=== PATIENT | male | born 1965 | race Caucasian/White ===

== ENCOUNTER 2019-05-08 08:25 | Day surgery (SDC) | payer MEDICAID ==
[~2019-05-08] VITALS: Ht 180.3 cm; Wt 109.3 kg
[~2019-05-08 08:25] MED LIST: LACTATED RINGERS 1,000 ML IV SCH
[2019-05-08] MEDS ORDERED: TROPICAMIDE 1% OPHTH DROPS 15ML LEFTEYE NR (09:05)
[2019-05-08] MEDS ORDERED: PHENYLEPHRINE HCL 10% OPHTH DROPS 5ML LEFTEYE NR (09:05)
[2019-05-08] MEDS ORDERED: FLUT1AER IH (09:23)
[2019-05-08] MEDS ORDERED: FENO130C8 PO (09:23)
[2019-05-08] MEDS ORDERED: METO-396 PO (09:23)
[2019-05-08] MEDS ORDERED: LEVO137T2 PO (09:23)
[2019-05-08] MEDS ORDERED: ATOR10TA69 PO (09:23)
[2019-05-08] MEDS ORDERED: TIOT18CA3 INH (09:23)
[2019-05-08] MEDS ORDERED: CYCLOPENTOLATE HCL 1% OPHTH DROPS 2ML LEFTEYE NR (09:30)
[2019-05-08] MEDS ORDERED: BALANCED SALT IRRIG SOLN COMB1 500ML OP SCH (10:00)
[2019-05-08] MEDS ORDERED: FENTANYL CITRATE/PF 50MCG/ML 2ML VIAL ONE (10:07)
[2019-05-08] MEDS ORDERED: MIDAZOLAM HCL 2 MG/2 ML VIAL ONE (10:08)
[2019-05-08] MEDS ORDERED: DIPHENHYDRAMINE 50MG/ML VIAL ONE (10:08)
[2019-05-08] MEDS ORDERED: PROPOFOL 200MG/20ML VIAL IV ONE (10:08)
[2019-05-08] MEDS ORDERED: LIDOCAINE HCL/PF 1% 10 MG/ML 5ML VIAL ONE (10:09)
[2019-05-08] MEDS ORDERED: TRYPAN BLUE 0.5 ML DISP.SYRIN IO ONE (10:44)
[2019-05-08] MEDS ORDERED: HYALURONATE SODIUM 14 MG/ML 0.85ML SYRINGE IO ONE (10:51)
[2019-05-08] MEDS ORDERED: HYDROMORPHONE HCL/PF 2MG/ML CPJ IV PRN (11:15)
[2019-05-08] MEDS ORDERED: NEO/POLYMYX B SULF/DEXAMETH OPHTH OINT 3.5GM ONE (13:09)
[2019-05-08] MEDS ORDERED: BALANCED SALT IRRIG SOLN 15ML ONE (13:09)
[2019-05-08] MEDS ORDERED: CIPROFLOXACIN 0.3% OPHTH SOLN 2.5ML ONE (13:09)
[2019-05-08] MEDS ORDERED: LIDOCAINE HCL/PF 2% 20 MG/ML 10ML VIAL ONE (13:09)
[2019-05-08] MEDS ORDERED: BUPIVACAINE HCL/PF 0.75% (7.5MG/ML) 10ML ONE (13:09)
[2019-05-08] MEDS ORDERED: TETRACAINE 0.5% OPHTH DROPS 4ML ONE (13:09)
[2019-05-08] MEDS ORDERED: LIDOCAINE HCL 2%/EPINEPHRINE 1:100,000 20 ML VIAL INFIL ONE (13:09)
[2019-05-08] MEDS ORDERED: PREDNISOLONE ACETATE 1% OPHTH DROPS 1ML ONE (13:09)
== END 2019-05-08 13:25 | disposition home or self-care (01) ==
LOC: EDBD 08:25 → OR 08:25
PROVIDERS: ATTEND Ophthalmology
DX: H25.89 Other age-related cataract (principal); J44.9 Chronic obstructive pulmonary disease, unspecified; F17.210 Nicotine dependence, cigarettes, uncomplicated; E03.9 Hypothyroidism, unspecified; F32.9 Major depressive disorder, single episode, unspecified; E66.9 Obesity, unspecified
CPT/HCPCS: 66982; J1200; J2250; J2704; J3010; J3490; Q9957; V2632

== ENCOUNTER → 2019-08-28 | Day surgery (SDC) | payer MEDICAID ==
[~2019-08-28] VITALS: Ht 180.3 cm; Wt 106.6 kg
[~2019-08-28] MED LIST changes: +ASPI-1393 PO; +ATOM40CA7 PO; +ATOR10TA69 PO; +BALANCED SALT IRRIG SOLN 15ML ONE; +BALANCED SALT IRRIG SOLN COMB1 500ML OP SCH; +BUPIVACAINE HCL/PF 0.75% (7.5MG/ML) 10ML ONE; +CIPROFLOXACIN 0.3% OPHTH SOLN 2.5ML ONE; +CYCLOPENTOLATE HCL 1% OPHTH DROPS 2ML RIGHTEYE NR; +FENO130C8 PO; +FENTANYL CITRATE/PF 50MCG/ML 2ML VIAL ONE; +FLUT1AER IH; +HYALURONATE SODIUM 14 MG/ML 0.85ML SYRINGE IO ONE; +HYDROMORPHONE HCL/PF 2MG/ML CPJ IV PRN; +LABETALOL 5MG/ML SYR 20 MG/4 ML SYRINGE IV PRN; +LAMO200T50 PO; +LEVO137T2 PO; +LIDOCAINE HCL 2%/EPINEPHRINE 1:100,000 20 ML VIAL INFIL ONE; +LIDOCAINE HCL/PF 2% 20 MG/ML 10ML VIAL ONE; +MEPERIDINE HCL/PF 25MG/ML CPJ IV PRN; +METO-396 PO; +MIDAZOLAM HCL 2 MG/2 ML VIAL ONE; +OMEP40CA34 PO; +ONDANSETRON HCL 4MG/2ML INJ IV PRN; +PHENYLEPHRINE HCL 10% OPHTH DROPS 5ML RIGHTEYE NR; +PREDNISOLONE ACETATE 1% OPHTH DROPS 5ML ONE; +PROPOFOL 200MG/20ML VIAL IV ONE; +TETRACAINE 0.5% OPHTH DROPS 4ML ONE; +TIOT18CA3 INH; +TROPICAMIDE 1% OPHTH DROPS 15ML RIGHTEYE NR
== END | disposition home or self-care (01) ==
LOC: OR 09:26
PROVIDERS: ATTEND Ophthalmology
DX: H25.89 Other age-related cataract (principal); J44.9 Chronic obstructive pulmonary disease, unspecified; I25.2 Old myocardial infarction; Z79.899 Other long term (current) drug therapy; Z79.82 Long term (current) use of aspirin
CPT/HCPCS: 66984; J2250; J2704; J3010; J3490; V2632